=== PATIENT | male | born 1955 | race American Indian/Alaskan Native ===

== ENCOUNTER 2023-03-25 10:57 | Day surgery (SDC) | payer OTHER ==
[2023-03-19 13:36] VITALS: BMI 22.3
[2023-03-25] MEDS ORDERED: LIDOCAINE HCL 2% (20ML MULTI-DOSE VIAL) ONE (11:14)
[2023-03-25] MEDS ORDERED: BUPIVACAINE HCL/PF 0.5% (5MG/ML) 10 ML VIAL ONE (11:15)
[2023-03-25] MEDS ORDERED: DEXAMETHASONE SOD PHOSPHATE 4 MG/1 ML VIAL ONE ×2 (11:15→13:51)
[2023-03-25] MEDS ORDERED: BUPIVACAINE HCL/PF 0.25% (2.5MG/ML) 10 ML VIAL ONE ×2 (11:15→13:51)
[2023-03-25] MEDS ORDERED: CEFAZOLIN 1 GM/D5W 1 GM/50 ML BAG IVPB ONE (12:30)
[2023-03-25] MEDS ORDERED: MIDAZOLAM HCL 2 MG/2 ML SINGLE DOSE VIAL ONE ×2 (12:33→12:35)
[2023-03-25] MEDS ORDERED: PROPOFOL 20 ML ONE (12:34)
[2023-03-25] MEDS ORDERED: ONDANSETRON 4 MG/2 ML VIAL IVPUSH PRN (13:16)
[2023-03-25] MEDS ORDERED: oxyCODONE HCL 5 MG TABLET PO PRN (13:16)
[2023-03-25] MEDS ORDERED: LACTATED RINGERS SOLUTION 1,000 ML IV SCH (13:30)
[2023-03-25 14:59] VITALS: RESP 16
[2023-03-25 15:02] VITALS: TEMP 97.7
[2023-03-25 15:43] VITALS: BP 121/69; PULSE 84
== END 2023-03-25 15:45 | disposition home or self-care (01) ==
LOC: FASU 10:57
PROVIDERS: ATTEND Podiatrist
PROC: 0QSP04Z Reposition Left Metatarsal with Internal Fixation Device, Open Approach (ICD-10-PCS; principal; 2023-03-25 13:01)
DX: M20.12 Hallux valgus (acquired), left foot (principal); M19.072 Primary osteoarthritis, left ankle and foot
CPT/HCPCS: 82962; 88304-TC; 88311-TC; 94760